=== PATIENT | male | born 1985 | race Caucasian/White ===

== ENCOUNTER 2022-01-30 10:23 | Inpatient (IN) | payer MEDICAID, OTHER ==
[~2022-01-30] VITALS: Ht 175.3 cm; Wt 78.0 kg
[2022-01-30 12:50] LABS: HEMATOCRIT 44.4 % (42.0-52.0); HEMOGLOBIN 14.9 g/dl (13.5-17.5); MEAN CORPUSCULAR HEMOGLOBIN 31.2 pg (27.0-33.0); MEAN CORPUSCULAR HGB CONC 33.6 g/dl (32.0-36.5); MEAN CORPUSCULAR VOLUME 93.1 fl (80.0-96.0); PLATELET COUNT, AUTOMATED 280 10^3/uL (150-450); RED BLOOD COUNT 4.77 10^6/uL (4.30-6.10); WHITE BLOOD COUNT 10.2 10^3/uL (4.0-10.0)
[2022-01-30 14:02] LABS: RSV AMPLIFICATION NEGATIVE (NEGATIVE)
[2022-01-30 14:16] LABS: ACETAMINOPHEN LEVEL < 2.0 UG/ML (10.0-30.0); ALBUMIN 4.2 GM/DL (3.2-5.2); ALT/SGPT 20 U/L (12-78); BILIRUBIN,DIRECT 0.2 MG/DL (0.0-0.2); BILIRUBIN,TOTAL 0.7 MG/DL (0.2-1.0); BLOOD UREA NITROGEN 13 MG/DL (7-18); CALCIUM LEVEL 8.9 MG/DL (8.5-10.1); CARBON DIOXIDE LEVEL 27 MEQ/L (21-32); CHLORIDE LEVEL 107 MEQ/L (98-107); CREATININE FOR GFR 0.77 MG/DL (0.70-1.30); ETHYL ALCOHOL (ETHANOL) < 0.003 % (0.000-0.010); GLOMERULAR FILTRATION RATE > 60.0 (>60); GLUCOSE, FASTING 88 MG/DL (70-100); POTASSIUM SERUM 4.2 MEQ/L (3.5-5.1); SALICYLATE LEVEL < 1.7 MG/DL (5.0-30.0); SODIUM LEVEL 140 MEQ/L (136-145); TOTAL PROTEIN 7.7 GM/DL (6.4-8.2)
[2022-01-30 14:17] LABS: AMPHETAMINES LEVEL URINE NEGATIVE (NEGATIVE); BARBITURATES URINE NEGATIVE (NEGATIVE); BENZODIAZEPINES URINE NEGATIVE (NEGATIVE); CANNABINOIDS URINE POSITIVE (NEGATIVE); COCAINE METABOLITE URINE NEGATIVE (NEGATIVE); METHADONE URINE NEGATIVE (NEGATIVE); OPIATES URINE NEGATIVE (NEGATIVE); PHENCYCLIDINE URINE NEGATIVE (NEGATIVE)
[2022-01-30] MEDS ORDERED: ACETAMINOPHEN TAB 650MG DOSE (2X325MG) PO ONE (15:50)
[2022-01-30] MEDS ORDERED: HOME MED LIST COMPLETE! XX SCH (19:55)
[2022-01-31] MEDS ORDERED: traZODone 50 MG TAB PO PRN (04:10)
[2022-01-31] MEDS ORDERED: ACETAMINOPHEN TAB 650MG DOSE (2X325MG) PO PRN (04:10)
[2022-01-31] MEDS ORDERED: MAALOX 30 ML SUSP *UDC PO PRN (04:10)
[2022-01-31] MEDS ORDERED: MOM 30ML SUSPENSION UDC PO PRN (04:10)
[2022-01-31 04:33] VITALS: BP 115/76
[2022-01-31] MEDS: NICOTINE 7 MG/24 HR TRANSDERMAL TD SCH (05:42)
[2022-01-31 08:20] LABS: FREE T4 1.23 NG/DL (0.76-1.46)
[2022-01-31] MEDS: CitaloPRAM (CeleXA) 20 MG TAB PO SCH (11:45)
[2022-01-31 18:34] VITALS: BP 151/81
[2022-02-01 06:42] VITALS: BP 122/70
[2022-02-01] MEDS: CitaloPRAM (CeleXA) 20 MG TAB PO SCH (08:40)
[2022-02-01] MEDS: NICOTINE 7 MG/24 HR TRANSDERMAL TD SCH (08:41)
[2022-02-01 18:00] VITALS: BP 132/64
[2022-02-02 06:40] VITALS: BP 130/72
[2022-02-02] MEDS: NICOTINE 7 MG/24 HR TRANSDERMAL TD SCH (08:26)
[2022-02-02 16:27] VITALS: BP 133/64
[2022-02-02] MEDS ORDERED: CitaloPRAM (CeleXA) 20 MG TAB PO SCH (21:00)
[2022-02-03 06:47] VITALS: BP 114/60
[2022-02-03] MEDS: NICOTINE 7 MG/24 HR TRANSDERMAL TD SCH (09:01)
[2022-02-03] MEDS ORDERED: NICO7PA TD (11:28)
[2022-02-03] MEDS ORDERED: CELE20TA PO (11:28)
== END 2022-02-03 14:29 | disposition home or self-care (01) | DRG 753 ==
LOC: M ED 10:23 → M ED INP 01-31 04:09 → M PSY 01-31 04:28
PROVIDERS: ADMIT Student in an Organized Health Care Education/Training Program; ATTEND Student in an Organized Health Care Education/Training Program
DX: F32.89 Other specified depressive episodes (principal); F60.89 Other specific personality disorders; R45.851 Suicidal ideations; Z91.52 Personal history of nonsuicidal self-harm; Z63.0 Problems in relationship with spouse or partner; F17.210 Nicotine dependence, cigarettes, uncomplicated; Z81.8 Family history of other mental and behavioral disorders; Z20.822 Contact with and (suspected) exposure to COVID-19; Z88.0 Allergy status to penicillin